=== PATIENT | male | born 1975 | race Caucasian/White ===

== ENCOUNTER 2022-06-18 02:03 | Emergency (ER) | payer OTHER ==
[2022-06-18 02:23] LABS: HEMOGLOBIN 13.8 gm/dl (14.0-17.5); RED BLOOD COUNT 4.75 M/UL (4.20-5.50); WHITE BLOOD COUNT 8.5 K/UL (4.5-11.0)
[2022-06-18 02:48] LABS: BUN/CREATININE RATIO 17 (0-10)
[2022-06-18] MEDS ORDERED: OMNICEF 300 MG300 MG PO (04:56)
== END 2022-06-18 05:48 | disposition other institution (70) ==
LOC: ER1 02:03
PROVIDERS: Student in an Organized Health Care Education/Training Program
DX: S22.42XA Multiple fractures of ribs, left side, initial encounter for closed fracture (principal); S01.01XA Laceration without foreign body of scalp, initial encounter; F17.200 Nicotine dependence, unspecified, uncomplicated; M54.2 Cervicalgia; V23.9XXA Unspecified motorcycle rider injured in collision with car, pick-up truck or van in traffic accident, initial encounter; Y92.410 Unspecified street and highway as the place of occurrence of the external cause; Z23 Encounter for immunization
CPT/HCPCS: 12034; 70450; 71045; 71260; 72125; 80053; 80307; 82550; 82553; 84484; 85025; 90471; 90715; 93005; 96374; 96375; 99284; G0480; J0696; J1885; Q9967